=== PATIENT | female | born 1990 | race Caucasian/White ===

== ENCOUNTER → 2020-10-31 | Outpatient (CLI) | payer OTHER ==
[2020-10-31 15:19] LABS: BASOPHILS ABSOLUTE AUTO 0.05 K/mm3 (0.00-0.23); BASOPHILS PERCENT AUTO 0 % (0-2); EOSINOPHILS ABSOLUTE AUTO 0.09 K/mm3 (0.00-0.68); EOSINOPHILS PERCENT AUTO 1 % (0-6); Hematocrit 40.5 % (33.0-51.0); Hemoglobin 13.9 g/dL (11.5-16.0); IMMATURE GRAN ABSOLUTE AUTO 0.13 K/mm3 (0.00-0.10); IMMATURE GRAN PERCENT AUTO 1 % (0-1); LYMPHOCYTES ABSOLUTE AUTO 1.85 K/mm3 (0.84-5.20); LYMPHOCYTES PERCENT AUTO 13 % (21-46); MONOCYTES ABSOLUTE AUTO 0.83 K/mm3 (0.16-1.47); MONOCYTES PERCENT AUTO 6 % (4-13); Mean Corpuscular HGB 31.5 pg (26.0-34.0); Mean Corpuscular HGB Conc 34.3 g/dL (31.5-36.5); Mean Corpuscular Volume 92 fL (80-100); Mean Platelet Volume 10.2 fL (9.1-12.4); NEUTROPHILS ABSOLUTE AUTO 11.45 K/mm3 (1.96-9.15); NEUTROPHILS PERCENT AUTO 80 % (41-73); Platelet Count 270 K/mm3 (150-400); RDW Coefficient Variation 13.1 % (11.7-14.2); Red Blood Cell Count 4.41 M/mm3 (3.80-5.20)
== END ==
LOC: LAB SHORT 13:38
PROVIDERS: Family Medicine
DX: Z34.83 Encounter for supervision of other normal pregnancy, third trimester (principal)
CPT/HCPCS: 82950; 85025

== ENCOUNTER → 2020-12-27 | Outpatient (CLI) | payer OTHER | END | disposition home or self-care (01) | LOC: LAB SHORT 11:50 → LAB 11:50 | DX: Z34.83 Encounter for supervision of other normal pregnancy, third trimester (principal) | CPT/HCPCS: 87081; 87150 ==

== ENCOUNTER 2021-01-28 02:47 | Inpatient (IN) | payer OTHER ==
[~2021-01-28] VITALS: Ht 160 cm; Wt 98.2 kg
[2021-01-28 03:24] LABS: BASOPHILS ABSOLUTE AUTO 0.05 K/mm3 (0.00-0.23); BASOPHILS PERCENT AUTO 0 % (0-2); EOSINOPHILS ABSOLUTE AUTO 0.09 K/mm3 (0.00-0.68); EOSINOPHILS PERCENT AUTO 1 % (0-6); Hematocrit 47.1 % (33.0-51.0); Hemoglobin 16.6 g/dL (11.5-16.0); IMMATURE GRAN ABSOLUTE AUTO 0.08 K/mm3 (0.00-0.10); IMMATURE GRAN PERCENT AUTO 1 % (0-1); LYMPHOCYTES ABSOLUTE AUTO 2.91 K/mm3 (0.84-5.20); LYMPHOCYTES PERCENT AUTO 17 % (21-46); MONOCYTES PERCENT AUTO 7 % (4-13); Mean Corpuscular HGB 31.9 pg (26.0-34.0); Mean Corpuscular HGB Conc 35.2 g/dL (31.5-36.5); Mean Corpuscular Volume 90 fL (80-100); Mean Platelet Volume 9.9 fL (9.1-12.4); NEUTROPHILS ABSOLUTE AUTO 13.17 K/mm3 (1.96-9.15); NEUTROPHILS PERCENT AUTO 75 % (41-73); Platelet Count 306 K/mm3 (150-400); RDW Coefficient Variation 12.5 % (11.7-14.2); RDW Standard Deviation 41.4 fL (35.1-46.3); Red Blood Cell Count 5.21 M/mm3 (3.80-5.20)
[2021-01-28] MEDS ORDERED: PRENATAL TABLE1 EAC2 PO (03:36)
[2021-01-28 04:16] LABS: SARS-Cov-2 (COVID-19) PCR, MMC NEGATIVE (NEGATIVE)
== END 2021-01-29 17:05 | disposition home or self-care (01) | DRG 807 ==
LOC: OBS 02:47 → BC 02:50 → OBS 02:51 → BC 02:51
PROVIDERS: ADMIT Advanced Practice Midwife
PROC: 10E0XZZ Delivery of Products of Conception, External Approach (ICD-10-PCS; principal; 2021-01-28)
PROC: 10907ZC Drainage of Amniotic Fluid, Therapeutic from Products of Conception, Via Natural or Artificial Opening (ICD-10-PCS; 2021-01-28)
PROC: 3E0234Z Introduction of Serum, Toxoid and Vaccine into Muscle, Percutaneous Approach (ICD-10-PCS; 2021-01-28)
PROC: 3E0134Z Introduction of Serum, Toxoid and Vaccine into Subcutaneous Tissue, Percutaneous Approach (ICD-10-PCS; 2021-01-28)
DX: O99.824 Streptococcus B carrier state complicating childbirth (principal); Z37.0 Single live birth; Z67.41 Type O blood, Rh negative; Z3A.40 40 weeks gestation of pregnancy; O26.893 Other specified pregnancy related conditions, third trimester; Z20.822 Contact with and (suspected) exposure to COVID-19; O77.0 Labor and delivery complicated by meconium in amniotic fluid; Z23 Encounter for immunization
CPT/HCPCS: 36415; 85025; 85460; 86850; 86870; 86900; 86901; 90471; 96372; A9270; J0290; J1885; J2590; J2791; J7120; U0004

== ENCOUNTER → 2021-06-05 | Outpatient (CLI) | payer OTHER ==
[~2021-06-05] MED LIST: PRENATAL TABLE1 EAC2 PO
[2021-06-06 18:06] LABS: HPV 16 Negative (Negative); HPV 18 Negative (Negative); HPV OTHER HR TYPES Negative (Negative)
== END | disposition home or self-care (01) ==
LOC: LAB SHORT 17:10
PROVIDERS: Family Medicine
DX: Z01.419 Encounter for gynecological examination (general) (routine) without abnormal findings (principal)
CPT/HCPCS: 87624; G0123

== ENCOUNTER → 2022-03-16 | Outpatient (CLI) | payer OTHER | LOC: LAB 17:18 → LAB SHORT 17:18 | DX: O09.893 Supervision of other high risk pregnancies, third trimester (principal) | CPT/HCPCS: 87081; 87150 ==

== ENCOUNTER 2022-04-02 05:04 | Inpatient (IN) | payer OTHER ==
[~2022-04-02] VITALS: Ht 160 cm; Wt 96.0 kg
[2022-04-02 05:48] LABS: BASOPHILS ABSOLUTE AUTO 0.04 K/mm3 (0.00-0.23); BASOPHILS PERCENT AUTO 0 % (0-2); EOSINOPHILS ABSOLUTE AUTO 0.09 K/mm3 (0.00-0.68); EOSINOPHILS PERCENT AUTO 1 % (0-6); Hematocrit 47.4 % (33.0-51.0); IMMATURE GRAN ABSOLUTE AUTO 0.06 K/mm3 (0.00-0.10); IMMATURE GRAN PERCENT AUTO 1 % (0-1); LYMPHOCYTES ABSOLUTE AUTO 2.99 K/mm3 (0.84-5.20); LYMPHOCYTES PERCENT AUTO 24 % (21-46); MONOCYTES ABSOLUTE AUTO 0.94 K/mm3 (0.16-1.47); MONOCYTES PERCENT AUTO 8 % (4-13); Mean Corpuscular HGB 32.1 pg (26.0-34.0); Mean Corpuscular HGB Conc 35.9 g/dL (31.5-36.5); Mean Corpuscular Volume 90 fL (80-100); Mean Platelet Volume 10.7 fL (9.1-12.4); NEUTROPHILS ABSOLUTE AUTO 8.36 K/mm3 (1.96-9.15); NEUTROPHILS PERCENT AUTO 67 % (41-73); Platelet Count 291 K/mm3 (150-400); RDW Coefficient Variation 12.4 % (11.7-14.2); RDW Standard Deviation 40.5 fL (35.1-46.3); Red Blood Cell Count 5.29 M/mm3 (3.80-5.20); White Blood Cell Count 12.48 K/mm3 (4.00-11.30)
--- NOTE | 2022-04-02 12:20 | NUR ---
1215 ASSUMED CARE OF PATIENT UP IN ROOM, DOING WELL, DENIES NEED FOR PAIN MEDICIATON AT THIS TIME. BABY SLEEPING IN OPEN CRIB. REPORT FROM ARIN JIMENEZ RN
== END 2022-04-03 09:50 | disposition home or self-care (01) | DRG 807 ==
LOC: OBS 05:04 → BC 05:22
PROVIDERS: ADMIT Family Medicine
PROC: 10E0XZZ Delivery of Products of Conception, External Approach (ICD-10-PCS; principal; 2022-04-02)
PROC: 10907ZC Drainage of Amniotic Fluid, Therapeutic from Products of Conception, Via Natural or Artificial Opening (ICD-10-PCS; 2022-04-02)
DX: O99.824 Streptococcus B carrier state complicating childbirth (principal); Z37.0 Single live birth; O26.893 Other specified pregnancy related conditions, third trimester; O99.214 Obesity complicating childbirth; Z3A.38 38 weeks gestation of pregnancy; Z67.41 Type O blood, Rh negative; Z98.890 Other specified postprocedural states
CPT/HCPCS: 36415; 85025; 85460; 86850; 86870; 86900; 86901; 96372; A9270; J0290; J1885; J2590; J2791; J7120

== ENCOUNTER → 2022-08-19 | Outpatient (CLI) | payer OTHER ==
[2022-08-20 15:11] LABS: HPV 16 Negative (Negative); HPV 18 Negative (Negative); HPV OTHER HR TYPES Negative (Negative)
== END | disposition home or self-care (01) ==
LOC: LAB SHORT 09:14
PROVIDERS: Family Medicine
DX: Z01.419 Encounter for gynecological examination (general) (routine) without abnormal findings (principal)
CPT/HCPCS: 87624; G0145

== ENCOUNTER 2024-02-09 17:10 | Emergency (ER) | payer OTHER ==
[~2024-02-09] VITALS: Ht 160 cm; Wt 90.7 kg
[2024-02-09 19:08] VITALS: BP 128/72
== END 2024-02-09 19:34 | disposition home or self-care (01) ==
LOC: ER 17:10
DX: S62.512A Displaced fracture of proximal phalanx of left thumb, initial encounter for closed fracture (principal); W23.0XXA Caught, crushed, jammed, or pinched between moving objects, initial encounter; Y93.39 Activity, other involving climbing, rappelling and jumping off
CPT/HCPCS: 29125; 73130; 99283-25

== ENCOUNTER 2024-02-28 07:13 | Day surgery (SDC) | payer OTHER ==
[~2024-02-28] VITALS: Ht 160 cm; Wt 93.7 kg
[~2024-02-28 07:13] MED LIST changes: +Lactated Ringer's 1,000 ML IV ONE
[2024-02-28] MEDS ORDERED: NS 50 ML IV ONE (07:38)
[2024-02-28] MEDS ORDERED: CeFAZolin Sodium 2,000 MG VIAL ONE (07:38)
[2024-02-28] MEDS ORDERED: Lactated Ringer's 1,000 ML IV ONE (07:50)
[2024-02-28] MEDS ORDERED: propofoL 20 ML IV ONE (08:11)
[2024-02-28] MEDS ORDERED: FentaNYL Citrate 50 MCG/ML 2 ML Injection ONE ×2 (08:11→09:52)
[2024-02-28] MEDS ORDERED: Ondansetron HCl 2 MG / ML 2ML Vial ONE (08:12)
[2024-02-28] MEDS ORDERED: Dexamethasone Sod Phos 10 MG/ML 1ML VIAL ONE (08:12)
[2024-02-28] MEDS ORDERED: Ketorolac Tromethamine 30mg Vial ONE (08:12)
[2024-02-28] MEDS ORDERED: Atropine Sulfate 0.4 MG/1 ML Vial ONE (09:37)
[2024-02-28] MEDS ORDERED: HYDROcodone 5-APAP 325 TAB ONE (10:38)
[2024-02-28 11:00] VITALS: BP 94/56
== END 2024-02-28 11:24 | disposition home or self-care (01) ==
LOC: ORSCSDS 07:13
PROVIDERS: Orthopaedic Surgery
PROC: 0MQ80ZZ Repair Left Hand Bursa and Ligament, Open Approach (ICD-10-PCS; principal; 2024-02-28 09:00)
DX: S63.642A Sprain of metacarpophalangeal joint of left thumb, initial encounter (principal); S62.502A Fracture of unspecified phalanx of left thumb, initial encounter for closed fracture; W01.198A Fall on same level from slipping, tripping and stumbling with subsequent striking against other object, initial encounter; E66.9 Obesity, unspecified; Z68.36 Body mass index [BMI] 36.0-36.9, adult
CPT/HCPCS: A9270; C1713; J0461; J0690; J1100; J1885; J2405; J2704; J3010; J7120

== ENCOUNTER → 2024-07-06 | Outpatient (CLI) | payer OTHER ==
[~2024-07-06] MED LIST changes: -Lactated Ringer's 1,000 ML IV ONE
[2024-07-06 12:52] LABS: Source, Urine Clean Catch
[2024-07-06 14:22] LABS: Bacteria Few /hpf; Red Blood Cells, Urine 0-2 /hpf (0-2); Squamous Epithelial Cells Few /hpf (Few)
== END ==
LOC: LAB 12:47 → LAB SHORT 12:47
PROVIDERS: Family Medicine
DX: Z34.81 Encounter for supervision of other normal pregnancy, first trimester (principal)
CPT/HCPCS: 81015; 87086

== ENCOUNTER → 2025-01-16 | Outpatient (CLI) | payer BC, OTHER | LOC: LAB 18:56 → LAB SHORT 18:56 | DX: O09.93 Supervision of high risk pregnancy, unspecified, third trimester (principal) | CPT/HCPCS: 87081 ==

== ENCOUNTER 2025-02-06 19:57 | Inpatient (IN) | payer OTHER ==
[~2025-02-06] VITALS: Ht 160 cm; Wt 108.2 kg
[~2025-02-06 19:57] MED LIST changes: +Methylergonovine Maleate 0.2MG / ML 1ML Amp IV ONE
[2025-02-06 20:19] VITALS: BP 111/65
[2025-02-06] MEDS ORDERED: FentaNYL Citrate 50 MCG/ML 2 ML Injection IV PRN (20:55)
[2025-02-06] MEDS ORDERED: Tranexamic Acid 100 ML IV SCH (21:00)
[2025-02-06] MEDS ORDERED: Oxytocin 10 Unit / ML Vial IM PRN (21:00)
[2025-02-06] MEDS ORDERED: OXYTOCIN/RINGER'S LACTATE 500 ML IV PRN (21:00)
[2025-02-06] MEDS ORDERED: Carboprost Tromethamine 250 MCG/ML 1ML Amp IM PRN (21:00)
[2025-02-06] MEDS ORDERED: Ondansetron HCl 2 MG / ML 2ML Vial IV PRN (21:00)
[2025-02-06] MEDS ORDERED: Methylergonovine Maleate 0.2MG / ML 1ML Amp IM PRN (21:00)
[2025-02-06] MEDS ORDERED: OXYTOCIN/RINGER'S LACTATE 500 ML IV SCH (21:35)
[2025-02-06] MEDS ORDERED: PRENATAL TABLE1 EAC9 PO (21:54)
[2025-02-06] MEDS ORDERED: FAMO20 PO (21:54)
[2025-02-06 22:10] VITALS: BP 117/73
[2025-02-06 22:24] LABS: BASOPHILS ABSOLUTE AUTO 0.04 K/mm3 (0.00-0.23); BASOPHILS PERCENT AUTO 0 % (0-2); EOSINOPHILS ABSOLUTE AUTO 0.05 K/mm3 (0.00-0.68); EOSINOPHILS PERCENT AUTO 0 % (0-6); Hematocrit 43.5 % (33.0-51.0); Hemoglobin 15.6 g/dL (11.5-16.0); IMMATURE GRAN ABSOLUTE AUTO 0.06 K/mm3 (0.00-0.10); IMMATURE GRAN PERCENT AUTO 1 % (0-1); LYMPHOCYTES ABSOLUTE AUTO 2.28 K/mm3 (0.84-5.20); LYMPHOCYTES PERCENT AUTO 17 % (21-46); MONOCYTES ABSOLUTE AUTO 0.83 K/mm3 (0.16-1.47); MONOCYTES PERCENT AUTO 6 % (4-13); Mean Corpuscular HGB Conc 35.9 g/dL (31.5-36.5); Mean Corpuscular Volume 89 fL (80-100); NEUTROPHILS ABSOLUTE AUTO 9.89 K/mm3 (1.96-9.15); NEUTROPHILS PERCENT AUTO 75 % (41-73); NRBC ABSOLUTE 0.00 K/mm3 (0.00-0.02); NRBC Auto 0.0 /100 WBC (0.0-0.2); Platelet Count 226 K/mm3 (150-400); RDW Coefficient Variation 13.2 % (11.7-14.2); RDW Standard Deviation 42.5 fL (35.1-46.3)
[2025-02-07] VITALS (13 sets, daily range): BP systolic 111–152; BP diastolic 60–101
[2025-02-07] MEDS ORDERED: Witch Hazel/Glycerin PADS TOP PRN (10:40)
[2025-02-07] MEDS ORDERED: Ketorolac Tromethamine 30mg Vial IV PRN (10:40)
[2025-02-07] MEDS ORDERED: FLU VACC TS2025-26(6MOS UP)/PF 45 MCG/0.5 ML SYRINGE IM SCH (10:40)
[2025-02-07] MEDS ORDERED: Rho(D) Immune Globulin 300 MCG / SYR IM SCH (10:45)
[2025-02-07] MEDS ORDERED: Methylergonovine Maleate 0.2MG / ML 1ML Amp IM PRN (10:45)
[2025-02-07] MEDS ORDERED: OXYTOCIN/RINGER'S LACTATE 500 ML IV PRN (10:45)
[2025-02-07] MEDS ORDERED: Benzocaine Topical Anesthetic Spray 60GM TOP PRN (10:45)
[2025-02-07 17:55] LABS: BASOPHILS ABSOLUTE AUTO 0.04 K/mm3 (0.00-0.23); BASOPHILS PERCENT AUTO 0 % (0-2); EOSINOPHILS ABSOLUTE AUTO 0.01 K/mm3 (0.00-0.68); EOSINOPHILS PERCENT AUTO 0 % (0-6); Hematocrit 44.7 % (33.0-51.0); Hemoglobin 16.0 g/dL (11.5-16.0); IMMATURE GRAN ABSOLUTE AUTO 0.12 K/mm3 (0.00-0.10); IMMATURE GRAN PERCENT AUTO 1 % (0-1); LYMPHOCYTES ABSOLUTE AUTO 2.03 K/mm3 (0.84-5.20); LYMPHOCYTES PERCENT AUTO 10 % (21-46); MONOCYTES ABSOLUTE AUTO 1.74 K/mm3 (0.16-1.47); MONOCYTES PERCENT AUTO 9 % (4-13); Mean Corpuscular HGB Conc 35.8 g/dL (31.5-36.5); Mean Corpuscular Volume 90 fL (80-100); NEUTROPHILS ABSOLUTE AUTO 16.21 K/mm3 (1.96-9.15); NEUTROPHILS PERCENT AUTO 81 % (41-73); NRBC ABSOLUTE 0.00 K/mm3 (0.00-0.02); NRBC Auto 0.0 /100 WBC (0.0-0.2); Platelet Count 260 K/mm3 (150-400); RDW Coefficient Variation 13.2 % (11.7-14.2); RDW Standard Deviation 42.8 fL (35.1-46.3)
[2025-02-07] MEDS ORDERED: Rho(D) Immune Globulin 300 MCG / SYR IV ONE (18:30)
[2025-02-08 00:14] VITALS: BP 105/58
[2025-02-08 03:52] VITALS: BP 113/60
[2025-02-08 08:33] VITALS: BP 103/65
[2025-02-08] MEDS ORDERED: Prenatal Vit/FE Fumarate/FA 1 Tab PO SCH (09:00)
[2025-02-08 11:51] VITALS: BP 116/67
--- NOTE | 2025-02-08 11:58 | NUR ---
DISCHARGE MOTHER READY TO DC HOME. VERBALIZES UNDERSTANDING OF DC INSTRUCTIONS AND FOLLOW UP APPOINTMENTS. NO QUESTIONS OR CONCERNS. CARING FOR SELF AND BABY WELL. MMR GIVEN. DC HOME STABLE. VSS. AFEBRILE. LOCHIA SCANT.
== END 2025-02-08 12:20 | disposition home or self-care (01) | DRG 807 ==
LOC: OBS 19:57 → BC 19:59 → OBS 20:53 → BC 20:54
PROVIDERS: ADMIT Family Medicine
PROC: 10E0XZZ Delivery of Products of Conception, External Approach (ICD-10-PCS; principal; 2025-02-07)
PROC: 4A1HXCZ Monitoring of Products of Conception, Cardiac Rate, External Approach (ICD-10-PCS; 2025-02-07)
DX: O42.12 Full-term premature rupture of membranes, onset of labor more than 24 hours following rupture (principal); Z37.0 Single live birth; Z3A.39 39 weeks gestation of pregnancy; O99.214 Obesity complicating childbirth; O26.893 Other specified pregnancy related conditions, third trimester; O66.0 Obstructed labor due to shoulder dystocia; O69.81X0 Labor and delivery complicated by cord around neck, without compression, not applicable or unspecified; Z67.41 Type O blood, Rh negative
CPT/HCPCS: 36415; 59025; 85025; 85460; 86850; 86900; 86901; 86922; 87210; 90707; 99214; A9270; J1885; J2210; J2590; J2791; J7120

== ENCOUNTER 2025-03-08 06:09 | Day surgery (SDC) | payer OTHER ==
[~2025-03-08] VITALS: Ht 160 cm; Wt 96.5 kg
[~2025-03-08 06:09] MED LIST changes: +FAMO20 PO; -Methylergonovine Maleate 0.2MG / ML 1ML Amp IV ONE; +PRENATAL TABLE1 EAC9 PO
[2025-03-08] MEDS ORDERED: FentaNYL Citrate 50 MCG/ML 2 ML Injection ONE (06:56)
[2025-03-08] MEDS ORDERED: Dexamethasone Sod Phos 10 MG/ML 1ML VIAL ONE (06:56)
[2025-03-08] MEDS ORDERED: Ondansetron HCl 2 MG / ML 2ML Vial ONE (06:56)
[2025-03-08] MEDS ORDERED: Rocuronium Bromide 10 MG/ML 5ML Injection IV ONE (06:57)
[2025-03-08] MEDS ORDERED: Ketorolac Tromethamine 30mg Vial ONE (06:57)
[2025-03-08] MEDS ORDERED: Sugammadex Sodium 200 MG/2ML SDV (100 MG/ML) ONE (06:57)
[2025-03-08] MEDS ORDERED: Bupivacaine 0.5% W/EPI 1:200000 SDV 30 ML Vial ONE (06:59)
[2025-03-08 08:25] VITALS: BP 133/82
--- NOTE | 2025-03-08 08:43 | NUR ---
03/08/25 0843 SIMBA WRIGHT DENIES NAUSEA. PAIN LEFT QUADRANT- PAIN 06/26. ACHING. WARM BLANKET PLACED OVER ABD.
== END 2025-03-08 09:00 | disposition home or self-care (01) ==
LOC: ORSCSDS 06:09
PROVIDERS: Obstetrics & Gynecology
PROC: 0UT74ZZ Resection of Bilateral Fallopian Tubes, Percutaneous Endoscopic Approach (ICD-10-PCS; principal; 2025-03-08 07:30)
DX: Z30.2 Encounter for sterilization (principal); K21.9 Gastro-esophageal reflux disease without esophagitis; E66.9 Obesity, unspecified; Z68.37 Body mass index [BMI] 37.0-37.9, adult; Z80.49 Family history of malignant neoplasm of other genital organs
CPT/HCPCS: 88302; J1100; J1885; J2405; J2704; J3010; J7120